=== PATIENT | female | born 1995 | race Caucasian/White ===

== ENCOUNTER 2020-06-09 05:37 | Emergency (ER) | payer OTHER ==
[~2020-06-09 05:37] MED LIST: BACTRIM DS TAB1 EACH PO; DICLEGIS DR 101 EACH PO; EFFEXOR XR37.5 MG PO; FLOMAX 0.4 MG0.4 MG PO; FLOMAX0.4 MG PO; MOTRIN600 MG PO; NORCO 5-325 TA1 EACH PO; ONDANSETRON ODT4 MG SL; PERCOCET 5-3251 EACH PO
[2020-06-09 06:06] LABS: BASOPHIL 0.5 % (0-2); BILIRUBIN NEGATIVE (NEGATIVE); BLOOD TRACE-INTACT Ery/uL (NEGATIVE); CLARITY CLEAR (CLEAR); COLOR YELLOW (YELLOW); EOSINOPHIL 0.7 % (0-5); GLUCOSE (U) NORMAL (NORMAL); HCT 37.6 % (37.0-47.0); HGB 12.5 g/dl (12.5-16.0); LEUKOCYTES TRACE Leu/uL (NEGATIVE); MCH 28.4 pg (25.0-31.0); MCHC 33.2 g/dL (32.0-36.0); MCV 85.5 fL (78.0-100.0); MONOCYTE 7.1 % (0-12); MPV 9.7 fL (6.0-9.5); NEUTROPHIL 77.4 % (41-80); NITRITE NEGATIVE (NEGATIVE); NRBC 0; PLT 272 K/uL (150-400); PROTEIN NEGATIVE (NEGATIVE); RDW 15.9 % (11.5-14.0); SPECIFIC GRAVITY <=1.005 (1.001-1.030); UROBILINOGEN 0.2 mg/dL (0.2-1.0); WBC 14.9 K/uL (4.0-10.5); pH 5.5 (5.0-9.0)
[2020-06-09 06:16] LABS: URINARY RBC RARE
[2020-06-09 06:48] LABS: POTASSIUM 3.4 mmol/L (3.5-5.1)
[2020-06-09] MEDS ORDERED: NORCO 5-325 TA1 EACH PO (07:31)
[2020-06-09] MEDS ORDERED: NITROFURANTOIN100 M1 PO (07:31)
[2020-06-09] MEDS ORDERED: NAPROXEN500 MG PO (07:31)
[2020-06-09] MEDS ORDERED: FLOMAX0.4 MG PO (07:31)
== END 2020-06-09 08:01 | disposition home or self-care (01) ==
LOC: FER 05:37
PROVIDERS: Emergency Medicine
DX: N13.2 Hydronephrosis with renal and ureteral calculous obstruction (principal); F17.210 Nicotine dependence, cigarettes, uncomplicated; Z87.442 Personal history of urinary calculi
CPT/HCPCS: 36415; 80048; 81001; 85025; J1885; J2405; J7120